=== PATIENT | female | born 1990 | race Caucasian/White ===

== ENCOUNTER → 2022-01-26 10:41 | Outpatient (CLI) | payer OTHER, SELFPAY ==
[2022-01-26 13:01] LABS: HCG Quantitative /Beta subunit 78.7 mIU/mL
== END ==
PROVIDERS: PCP Family Medicine; Referring Provider Family Medicine; Visit Provider Family Medicine
DX: Z34.90 Encounter for supervision of normal pregnancy, unspecified, unspecified trimester (principal)
CPT/HCPCS: 36415; 84702

== ENCOUNTER → 2022-02-02 11:22 | Outpatient (CLI) | payer OTHER, SELFPAY ==
[2022-02-02 12:14] LABS: HCG Quantitative /Beta subunit 2680.6 mIU/mL
== END ==
PROVIDERS: PCP Family Medicine; Referring Provider Family Medicine; Visit Provider Family Medicine
DX: Z34.90 Encounter for supervision of normal pregnancy, unspecified, unspecified trimester (principal)
CPT/HCPCS: 36415; 84702

== ENCOUNTER → 2022-02-11 11:00 | Outpatient (CLI) | payer OTHER, SELFPAY | PROVIDERS: PCP Family Medicine; Visit Provider Family Medicine | DX: O26.891 Other specified pregnancy related conditions, first trimester (principal); O26.899 Other specified pregnancy related conditions, unspecified trimester; R10.9 Unspecified abdominal pain; R30.0 Dysuria | CPT/HCPCS: 87077; 87086; 87147 ==

== ENCOUNTER → 2022-03-11 11:57 | Outpatient (CLI) | payer OTHER, SELFPAY ==
[2022-03-11 12:41] LABS: Add Manual Diff / Slide Review NO; Basophils Absolute Auto 100 /uL (0-100); Basophils Percent Auto 0.8 % (0-2); Eosinophils Absolute Auto 100 /uL (0-450); Eosinophils Percent Auto 1.3 % (2-4); Hematocrit 36.5 % (36-46); Hemoglobin 12.2 g/dL (12.0-16.0); Lymphocytes Absolute Auto 1600 /uL (1100-4500); Lymphocytes Percent Auto 17.1 % (25-40); Mean Corpuscular HGB Conc 33.4 % (30-36); Mean Corpuscular Hemoglobin 27.7 PG (26-34); Mean Corpuscular Volume 82.9 fL (80-100); Monocytes Absolute Auto 300 /uL (0-900); Monocytes Percent Auto 3.2 % (3-14); Neutrophils Absolute Auto 7300 /uL (1500-7000); Neutrophils Percent Auto 77.6 % (50-75); Platelet Count 255 X10^3/uL (150-400); White Blood Cell Count 9.4 X10^3/uL (4.5-11.0)
[2022-03-11 13:27] LABS: TSH w/ Reflex to FT4 0.04 uIU/mL (0.47-4.68)
[2022-03-11 14:00] LABS: Free T4, Direct Thyroxine 1.07 ng/dL (0.78-2.19)
[2022-03-11 16:08] LABS: Free T3, Triiodothyronine Free 2.98 pg/mL (2.77-5.27)
[2022-03-11 16:36] LABS: Appearance Urine UA CLOUDY; Bilirubin Urine UA NEGATIVE (NEGATIVE); Color Urine UA YELLOW; Glucose Urine UA NEGATIVE (Negative); Ketones Urine UA NEGATIVE (NEGATIVE); Leukocyte Esterase Urine UA NEGATIVE (NEGATIVE); Nitrite Urine UA NEGATIVE (Negative); Occult Blood Urine UA NEGATIVE (Negative); Protein Urine UA NEGATIVE (Negative); Specific Gravity Urine UA 1.015 (1.000-1.035); Urobilinogen Urine UA 0.2 E.U./dL (0.2)
[2022-03-11 17:18] LABS: Bacteria Urine None Seen; Culture Indicated Urine Cult Not Indicated; RBC Urine 0-1/HPF (0-5/HPF); Squamous Epithelial Cell Urine 5-10 /HPF (0-5/HPF); WBC Urine 0-1/HPF (0-5/HPF)
[2022-03-12 06:43] LABS: RPR Screen Non Reactive (Non Reactive)
[2022-03-12 08:22] LABS: Varicella IgG Antibody <135 index (Immune >165)
[2022-03-12 16:04] LABS: HIV 1 & 2 Ab/Ag 4th Gen Combo NEGATIVE (NEGATIVE); Hep C Virus Ab w/Reflex Quant NEGATIVE s/c (NEGATIVE); Hepatitis B Surface Antigen NEGATIVE s/c (NEGATIVE); Rubella Antibody IgG 30.5 IU/mL (>15)
== END ==
PROVIDERS: PCP Family Medicine; Referring Provider Family Medicine; Visit Provider Family Medicine
DX: O26.891 Other specified pregnancy related conditions, first trimester (principal); O26.899 Other specified pregnancy related conditions, unspecified trimester; R68.89 Other general symptoms and signs; R10.9 Unspecified abdominal pain; R30.0 Dysuria; R35.0 Frequency of micturition; R79.89 Other specified abnormal findings of blood chemistry
CPT/HCPCS: 36415; 80055; 81001; 84439; 84443; 84481; 86787; 86803; 86850; 86900; 86901; 87389

== ENCOUNTER → 2022-03-24 12:23 | Outpatient (CLI) | payer OTHER, SELFPAY | PROVIDERS: PCP Family Medicine; Visit Provider Family Medicine | DX: N39.0 Urinary tract infection, site not specified (principal) | CPT/HCPCS: 87077; 87086; 87147 ==

== ENCOUNTER → 2022-05-13 09:31 | Outpatient (CLI) | payer OTHER, SELFPAY ==
--- NOTE | 2022-05-13 09:32 | DI.US.S_ITS ---
PROCEDURE: US OB >= 14 WEEKS FETUS INDICATIONS: Anatomy screening OUTSIDE/PRIOR DATING DATA: Last menstrual period (LMP): Unknown. LMP-based estimated date of delivery (JUANITA): Unknown. First dating scan (date and location): 05/13/2022. Estimated date of delivery (JUANITA) from first dating scan: 09/30/2022. TECHNIQUE: Real-time scanning was performed of the fetus, with image documentation and biometric measurements. COMPARISON: None. FINDINGS: General: A single living intrauterine gestation is present. Presentation: Vertex. Placenta: Placental position is posterior , without previa. Amniotic fluid index: 10.9 cm, normal range is 5-24 cm. heart rate: 153 beats per minute. Maternal cervical canal: 4 cm long. Normal lower limit is 2.5 cm. biometrics: Biparietal diameter: 4.6 cm 20 weeks 0 days Head circumference: 17.3 cm 19 weeks 6 days Abdominal circumference: 15.0 cm 20 weeks 1 day Femur length: 3.1 cm 19 weeks 5 days Composite gestational age from initial scan: 20 weeks 0 days Composite gestational age from present scan: 20 weeks 0 days weight: 323 g. Secondary to weight, percentile cannot be calculated. Anatomic survey: Neuro: Ventricles are non-dilated at less than 10 mm. Cisterna magna is normal at 3-11 mm. Cerebellum is normal in size and morphology. Nuchal skin fold: Normal at less than 6 mm between 14-21 weeks gestational age. Face: Nose and lips, facial profile are normal. Spine: No evidence for spina bifida. Heart: 4-chambered heart is present, with normal ventricular outflow tracts. Diaphragm: Diaphragm is intact. Stomach: Left-sided stomach is present. Kidneys: No hydronephrosis. Normal is less than 5 mm in 2nd trimester, less than 7 mm in 3rd trimester. Cord: 3-vessel cord has orthotopic insertion. Bladder: Normal in size. Extremities: All 4 extremities identified. IMPRESSION: Single live intrauterine with ultrasound gestational age of 20 weeks 0 days. Anatomy is within normal limits. We strive to produce accurate, complete, and clear reports of imaging services. To assist us in improving patient care, this report was composed using standard report templates and voice recognition software. Therefore, it may contain abnormal punctuation, insertions and/or omissions. Occasional wrong-word or sound-alike substitutions may occur. Though we review the report and make efforts to correct it, we do recommend that the report be read carefully in proper context to recognize any text inaccuracies. Dictated by: Mirlela Pratt M.D. on 05/13/2022 at 15:23 Approved by: Mirella Pratt M.D. on 05/13/2022 at 15:38
== END ==
PROVIDERS: PCP Family Medicine; Referring Provider Family Medicine; Visit Provider Family Medicine
DX: Z34.92 Encounter for supervision of normal pregnancy, unspecified, second trimester (principal); Z36.89 Encounter for other specified antenatal screening; Z3A.20 20 weeks gestation of pregnancy
CPT/HCPCS: 76811

== ENCOUNTER → 2024-01-10 15:05 | Outpatient (CLI) | payer OTHER, SELFPAY ==
[2024-01-10 15:26] LABS: Add Manual Diff / Slide Review NO; Basophils Absolute Auto 0 /uL (0-100); Basophils Percent Auto 0.5 % (0-2); Eosinophils Absolute Auto 100 /uL (0-450); Eosinophils Percent Auto 1.2 % (2-4); Hemoglobin 13.6 g/dL (12.0-16.0); Lymphocytes Absolute Auto 1800 /uL (1100-4500); Lymphocytes Percent Auto 24.2 % (25-40); Mean Corpuscular HGB Conc 33.9 % (30-36); Mean Corpuscular Hemoglobin 27.4 PG (26-34); Mean Corpuscular Volume 80.9 fL (80-100); Monocytes Absolute Auto 300 /uL (0-900); Monocytes Percent Auto 3.5 % (3-14); Neutrophils Absolute Auto 5400 /uL (1500-7000); Neutrophils Percent Auto 70.6 % (50-75); Platelet Count 300 X10^3/uL (150-400); Red Blood Cell Count 4.94 X10^6/uL (4.0-5.2); Red Cell Distribution Width 13.7 % (11.6-14.8); White Blood Cell Count 7.6 X10^3/uL (4.5-11.0)
[2024-01-10 15:45] LABS: Erythrocyte Sedimentation Rate 3 MM/HR (0-20)
[2024-01-10 15:48] LABS: Alanine Aminotransferase 14 IU/L (<35); Albumin 4.7 g/dL (3.5-5.0); Albumin Globulin Ratio 1.4 (1.0-2.8); Alkaline Phosphatase 49 U/L (38-126); Aspartate Aminotransferase 19 IU/L (14-36); BUN Creatinine Ratio 18.4 (6-22); Bilirubin Total 0.5 mg/dL (0.2-1.3); Blood Urea Nitrogen 14 mg/dL (7-17); C-Reactive Protein Quant < 0.5 mg/dL (<1.0); Calcium 9.4 mg/dL (8.4-10.2); Carbon Dioxide 31 mmol/L (22-32); Chloride 105 mmol/L (98-107); Estimated Glomerular Filt Rate > 60 mL/min (>60); Globulin 3.3 g/dL (1.7-4.1); Glucose 144 mg/dL (70-100); HEMOLYSIS < 15 (0-50); Potassium 4.3 mmol/L (3.4-5.1); Sodium 141 mmol/L (137-145)
[2024-01-10 16:15] LABS: TSH w/ Reflex to FT4 0.65 uIU/mL (0.47-4.68)
[2024-01-12 17:41] LABS: Hemoglobin A1C% w Est Avg Glu 5.4 % (4.0-6.0)
[2024-01-12 21:09] LABS: Scleroderma 70 Antibody < 0.2 AI (0.0-0.9)
== END ==
PROVIDERS: PCP Family Medicine; Referring Provider Family Medicine; Visit Provider Family Medicine
DX: L40.9 Psoriasis, unspecified (principal); R20.9 Unspecified disturbances of skin sensation
CPT/HCPCS: 36415; 80053; 83036; 84443; 85025; 85651; 86140; 86235